=== PATIENT | female | born 2000 | race Two or more races ===

== ENCOUNTER 2024-10-07 07:15 | Day surgery (SDC) | payer MEDICAID, SELFPAY ==
--- NOTE | 2024-10-05 17:09 | ESHP_ITS ---
RE: EULALIA FELIX : 2000 DATE OF ADMISSION: 10/07/2024 DATE OF SURGERY: 10/07/2024 HISTORY OF PRESENT ILLNESS: This is a 24-year-old 1, para 0 with LMP of 07/06/2024, who has had serial ultrasounds over the past 3 weeks showing an intrauterine with crown-rump length 19.3 mm consistent with 8 weeks and 3 days with no cardiac activity. The patient originally elected expectant management but now elects to undergo a suction dilatation curettage. She denies any bleeding. She denies any fever. She denies any pelvic pain. She denies any abnormal vaginal discharge. ALLERGIES: NO KNOWN DRUG ALLERGIES. MEDICATIONS: multivitamin 1 p.o. daily. PAST MEDICAL HISTORY: Denies. PAST SURGICAL HISTORY: Denies. SOCIAL HISTORY: She is single. She denies any alcohol, drug use, or smoking. FAMILY HISTORY: Denies. REVIEW OF SYSTEMS: She denies any chest pain, palpitations, cough, fever, shortness of breath, or lower extremity pain. PHYSICAL EXAMINATION: VITAL SIGNS: Blood pressure 110/70, heart rate 88, respirations 18, temperature 90.6. HEENT: Oropharynx and sclerae are clear. LUNGS: Clear to auscultation bilaterally. HEART: Regular rate and rhythm. ABDOMEN: Nontender. EXTREMITIES: Nontender. SKIN: No gross rashes or lesions. NEUROLOGIC: No deficit. ASSESSMENT AND PLAN: Missed at 8 weeks gestation. PLAN: Suction dilatation and curettage. Informed consent was obtained. The patient has been made aware of the risks, complications, alternatives, and benefits of the proposed procedure and she agrees. She is aware of the risk of bleeding, leading to blood transfusion, uterine perforation with injury to bladder or bowel, the need for emergency laparotomy to stop or control bleeding, infection in the uterus and abdomen, blood clots in the legs and lungs, and anesthesia reactions, and complications. DT: 16:25:28 TT: 17:08:00 Ref: [id number] - TID: [id number]
[2024-10-06 08:21] VITALS: BMI 32.1
[2024-10-06 09:15] LABS: Basophils # (Auto) 0.0 Thou/mm3 (0.0-0.2); Basophils % (Auto) 0 % (0-2.5); Eosinophils # (Auto) 0.1 Thou/mm3 (0.0-0.5); Eosinophils % (Auto) 1 % (0-10); Hematocrit 34.9 % (36.0-46.0); Hemoglobin 12.0 g/dL (12.0-16.0); Immature Granulocytes Auto 0.05 Thou/mm3 (0.00-0.00); Lymphocytes # (Auto) 2.1 Thou/mm3 (1.0-4.8); Lymphocytes % (Auto) 26 % (10-50); Mean Corpuscular HGB Conc 34.4 g/dl (31.0-37.0); Mean Corpuscular Hemoglobin 27.4 pg (25.0-35.0); Mean Corpuscular Volume 80 fL (80-100); Monocytes # (Auto) 0.6 Thou/mm3 (0.0-0.8); Monocytes % (Auto) 8 % (0-12); Neutrophils # (Auto) 5.5 Thou/mm3 (1.8-7.7); Neutrophils % (Auto) 65 % (37-80); Nucleated Red Blood Cell # 0.00 Thou/mm3 (0.00-0.00); Nucleated Red Blood Cell % 0 /100 WBC (0); Platelet Count 280 Thou/mm3 (140-440); RDW Standard Deviation 57.3 fL (36.4-46.3); Red Blood Count 4.38 Miln/mm3 (4.00-5.20); White Blood Count 8.3 Thou/mm3 (3.6-11.0)
[2024-10-06 09:35] LABS: Alanine Aminotransferase 18 U/L (10-49); Albumin, Serum 4.0 gm/dL (3.5-5.0); Albumin/Globulin Ratio 1.5 (1.2-2.2); Alkaline Phosphatase 69 U/L (46-116); Anion Gap 9 (7-16); Aspartate Amino Transferase 19 U/L (0-34); BUN/Creatinine Ratio 10 Ratio (12-20); Bilirubin,Total 0.2 mg/dL (0.3-1.2); Blood Urea Nitrogen 6 mg/dL (9-23); Calcium 8.9 mg/dL (8.3-10.6); Calcium (Corrected) 8.9 mg/dL (8.5-10.1); Carbon Dioxide 24.4 mMol/L (20.0-31.0); Chloride 106 mMol/L (98-107); Creatinine (Component) 0.6 mg/dL (0.6-1.3); Estimated Creatinine Clearance 141.2 mL/min (>60); Globulin 2.6 gm/dL (2.3-3.5); Glucose 109 mg/dL (74-106); Osmolality,Calculated 276 (275-295); Potassium 3.8 mMol/L (3.4-5.1); Sodium 139 mMol/L (136-145); Total Protein 6.6 gm/dL (5.7-8.2); eGFR > 60 See Note
[2024-10-06 09:42] LABS: INR 0.9 (0.9-1.3); Partial Thromboplastin Time 24.9 Seconds (22.0-36.0); Prothrombin Time 10.1 Seconds (9.0-12.2)
[2024-10-06 10:37] LABS: Beta HCG,Quantitative 304652 mIU/mL (<5.0)
[2024-10-07 07:38] VITALS: BP 127/75; PULSE 70; RESP 20; TEMP 36.4; O2SAT 99; BMI 31.8
[2024-10-07] MEDS: RINGERS LACTATED 1000 ML 1,000 ML 30 ML IV (07:53)
--- NOTE | 2024-10-07 09:41 | PD.GYNPROC ---
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 Pre-Op diagnosis: Missed at 8 weeks gestation. Post-Op diagnosis: Missed at 8 weeks gestation. Anesthesia type: General Procedure description: After proper informed consent was obtained. The patient was made aware of the risks, complications, alternatives and benefits of the proposed procedure. She was taken the operating room where she underwent induction of general anesthesia in the supine position on the operating room table. She was placed in the dorsal lithotomy position. A red rubber catheter was placed in the bladder to drain the bladder. The patient was prepped and draped in usual sterile fashion. A timeout was performed. A bivalve speculum was placed in the vagina. A single-tooth tenaculum was used to grasp the antilipid the cervix. The cervix was long and closed. The the uterus was 8 weeks size. The cervical dilators were used to dilate the cervix to accommodate the 12 mm suction curette. The uterine cavity was curetted in all 4 quadrants and products of conception were obtained. Patient subsequently received Pitocin, Methergine and TXA. A sharp curette was then utilized to curette the uterine cavity in all 4 quadrants. A suction curette was then utilized to curette the uterine cavity in all 4 quadrants and no additional products of conception were obtained. Hemostasis was obtained. All instruments removed from the vagina. She was reversed from general anesthesia in the supine position and transferred to the recovery room in stable condition. Discharge instructions were given preoperatively. I discussed with her family the nature of her condition and the intraoperative findings the expectation for recovery, all questions answered. Specimen: other (products of conception) Estimated blood loss (ml): 600 Findings: 8 wk size mobile anteverted uterus Cervix closed Moderate amount of product of conception in uterine cavity Smooth contour uterine cavity. Complications: none Surgical staff Edward Grissom MD Operation Date: 10/07/24 09:45 <No data on this case meets the specified criteria> Diagnosis Discharge Diagnosis (1) Missed : Status: Acute Problem List Completed Was Problem List Reviewed/Reconciled?: Yes
[2024-10-07 10:22] VITALS: BP 115/69; PULSE 63; RESP 19; TEMP 36.3; O2SAT 98
--- NOTE | 2024-10-07 10:22 | SUR.PHASEI ---
1022 Patient arrived to recovery resting comfortably in [facility], on oxygen 8L via oxy mask, breathing unlabored, vital signs stable, denies pain and nausea, dressing intact to vaginal area; peripad, no bleeding noted, report received from Dr. Tuttle and Emanuel PLAZA
[2024-10-07 10:27] VITALS: BP 113/72; PULSE 60; RESP 20; O2SAT 99
[2024-10-07 10:32] VITALS: BP 116/74; PULSE 57; RESP 14; O2SAT 100
[2024-10-07 10:37] VITALS: BP 118/69; PULSE 67; RESP 17; O2SAT 99
[2024-10-07 10:52] VITALS: BP 124/82; PULSE 63; RESP 13; TEMP 36.3; O2SAT 99
--- NOTE | 2024-10-07 11:20 | SUR.PHASEII ---
1120 patient disconnected from vital signs monitor, awake and alert, breathing unlabored, vital signs stable, denies pain, dressing intact; scant amount of blood noted, patient and her mother educated on post op bleeding and when to seek medical attention, both receptive, dressed in her clothing, discharge instructions given to patient and patients mother with the assistance of the hospital certified court interpreter Amada, mother signed discharge instructions.
--- NOTE | 2024-10-07 11:29 | SUR.PHASEII ---
1129 Patient ride arrived, patient given all her belongings prior to discharge, transported via wheelchair and left in a private vehicle.
== END 2024-10-07 11:29 | disposition home or self-care (01) ==
PROVIDERS: PCP Family Medicine; Referring Provider Specialist; Visit Provider Specialist
PROC: (CPT 58120; principal; 2024-10-07 09:30)
DX: O02.1 Missed abortion (principal)
CPT/HCPCS: 59820; 36415; 80053; 84702; 85025; 85610; 85730; 86850; 86900; 86901; A4217; J0131; J0690; J1100; J2210; J2250; J2405; J2704; J3010; J7120